=== PATIENT | male | born 1975 | race Hispanic/Latino ===

== ENCOUNTER 2018-09-12 22:43 | Observation (INO) | payer MEDICARE, OTHER ==
[2018-09-12] MEDS ORDERED: NACL 0.9% 1000 ML 1,000 ML IV ONE (22:51)
[2018-09-12 23:11] LABS: Basophils % (Auto) 0.7 % (0.0-1.8); Eosinophils # (Auto) 0.2 K/mm3 (0.0-0.4); Eosinophils % (Auto) 2.3 % (0.0-4.3); Hematocrit 37.1 % (35.5-45.6); Hemoglobin 12.4 gm/dl (11.8-15.2); Lymphocytes # (Auto) 1.8 K/mm3 (1.2-5.4); Lymphocytes % (Auto) 26.6 % (13.4-35.0); Mean Corpuscular HGB Conc 34 % (32-34); Mean Corpuscular Volume 100 fl (84-94); Monocytes # (Auto) 0.9 K/mm3 (0.0-0.8); Monocytes % (Auto) 13.5 % (0.0-7.3); Red Blood Count 3.72 M/mm3 (3.65-5.03); Red Cell Distribution Width 13.9 % (13.2-15.2)
[2018-09-12 23:23] LABS: Alanine Aminotransferase 28 units/L (7-56); Albumin 3.7 g/dL (3.9-5); BUN/Creatinine Ratio 13; Blood Urea Nitrogen 9 mg/dL (9-20); Calcium 8.6 mg/dL (8.4-10.2); Hemolysis Index 9
[2018-09-12 23:26] LABS: Benzodiazepines Screen,Urine PRESUMPTIVE NEGATIVE; Cannabinoid Screen,Urine PRESUMPTIVE NEGATIVE; Cocaine Screen,Urine PRESUMPTIVE NEGATIVE; Methadone Screen,Urine PRESUMPTIVE NEGATIVE; Opiate Screen,Urine PRESUMPTIVE NEGATIVE
[2018-09-12 23:32] LABS: Bilirubin,Urine NEG (Negative); Blood,Urine NEG (Negative); Color,Urine Yellow (Yellow); Mucus,Urine FEW /HPF; Protein,Urine <15 mg/dL mg/dL (Negative)
[2018-09-12 23:35] LABS: Platelet Count 199 K/mm3 (140-440)
[2018-09-12 23:38] LABS: INR 0.9 (0.87-1.13); Partial Thromboplastin Time 22.6 Sec. (24.2-36.6)
--- NOTE | 2018-09-12 23:41 | Emergency Department Report ---
HPI - General Chief Complaint: Altered Mental Status Time Seen by Provider: 09/12/18 22:51 - HPI HPI: 43-year-old male presents to the emergency department via EMS with a complaint of being unresponsive. Per EMS and then a [facility] police lieutenant precinct, the patient recently had gotten out of fpc. His sister went over to the house to check on him and at that point he was awake and alert. She went downstairs and spoke with the patient's significant other and when she went back upstairs to talk to the patient he was unresponsive. Apparently he had a large amount of clear sputum or drainage coming from the mouth and sounded like he was having trouble breathing. Allegedly the patient had some type of head injury earlier in the day. He also has a history of drug abuse and uses either methamphetamines or heroin. The patient is a poor historian secondary to his current acute medical condition. ED Past Medical Hx - Past Medical History Previous Medical History?: No - Surgical History Past Surgical History?: No - Social History Smoking Status: Unknown if ever smoked Substance Use Type: Heroin, Methamphetamines ED Review of Systems ROS: Stated complaint: POSS OD/POSS HEAD INJURY Other details as noted in HPI Comment: Unobtainable due to pts medical conditions Physical Exam - Physical Exam Vital Signs: Vital Signs 09/12/18 22:48 Pulse Rate 52 L Respiratory 16 Rate Blood Pressure 123/63 O2 Sat by Pulse 100 Oximetry Physical Exam: GENERAL: The patient is well-developed well-nourished. HEENT: Normocephalic. Atraumatic. Patient has moist mucous membranes. EYES: Extraocular motions are intact. Pupils are equal and reactive to light bilaterally. NECK: Supple. Trachea is midline. CHEST/LUNGS: Clear to auscultation. There is no respiratory distress noted. HEART/CARDIOVASCULAR: Regular. There is no tachycardia. There is no obvious murmur. ABDOMEN: Abdomen is soft, nontender. Patient has normal bowel sounds. There is no abdominal distention. SKIN: Skin is warm and dry. NEURO: The patient is altered and sedated but is seen immediately waking up spontaneously, moving all extremities, and appearing agitated, before he goes back to sleep. Withdraws from painful stimuli. He is otherwise not following any commands. MUSCULOSKELETAL: There is no tenderness or deformity. There is no evidence of acute injury. ED Course Vital Signs 09/12/18 22:48 Pulse Rate 52 L Respiratory 16 Rate Blood Pressure 123/63 O2 Sat by Pulse 100 Oximetry ED Medical Decision Making - Lab Data Result diagrams: 09/12/18 Unknown 09/12/18 Unknown - EKG Data -: EKG Interpreted by Me EKG shows normal: sinus rhythm, axis, intervals, QRS complexes (LVH), ST-T waves Rate: bradycardia (57 bpm) - EKG Data Interpretation: LVH - Radiology Data Radiology results: report reviewed, image reviewed interpreted by me: Chest x-ray does not show any pneumothorax, pleural effusion, pneumonia or obvious focal consolidation. PROCEDURE: CT HEAD/BRAIN WO CON TECHNIQUE: Routine axial imaging was obtained of the brain without IV contrast. HISTORY: AMS COMPARISONS: None FINDINGS: There is no evidence of acute stroke or hemorrhage. The ventricular system is appropriate in size and is symmetric. The visualized sinuses are clear. The mastoid air cells are well pneumatized. The calvarium appears intact. IMPRESSION: Within normal limits.. This document is electronically signed by Precious Early MD., September 12 2018 11:53:02 PM ET Transcribed By: RB Dictated By: PRECIOUS EARLY MD Electronically Authenticated By: PRECIOUS EARLY MD Signed Date/Time: 09/12/18 6212 PROCEDURE: CT CERVICAL SPINE WO CON TECHNIQUE: Computerized tomography of the cervical spine was performed from the skull base to T1 without contrast material. HISTORY: fall . Pain. COMPARISONS: None . FINDINGS: No fracture or subluxation is visualized. Prevertebral soft tissues appear normal. Small posterior spurs are present at C4-C5. There is no focal disc herniation. No evidence of spinal stenosis or cord compression. The neural foramen bilaterally appear adequate. Impression: Minimal degenerative disc disease as described. No fracture or subluxation is identified. This document is electronically signed by Kishor Cortes MD., September 13 2018 12:23:00 AM ET Transcribed By: DFAlma Dictated By: KISHOR CORTES MD Electronically Authenticated By: KISHOR CORTES MD Signed Date/Time: 09/13/18 0025 - Medical Decision Making This patient presents to the emergency department with a EMS call for an unresponsive patient. He received some Narcan in route that did not appear to provide any relief or improvement of his symptoms. However he did spontaneously wake up and start moving as they arrived to the emergency department. He appears to cycle between waking up, becoming slightly agitated, and then going back to sleep. He does not follow any commands and has not been heard talking much but has been sitting moving his extremities. He does not appear to have any signs of any focal or lateralizing deficits. A stat CT scan of the head was done that did not show any bleed, shift, mass, ischemia, or any other acute process. CT of the cervical spine did not show any fracture, subluxation or any acute process. Patient's labs have been mostly unremarkable except for very mild hypokalemia and a urine drug screen positive for amphetamines. He does have a history of amphetamine and heroin abuse. Opiates were negative and the patient does not appear to have had any response to the Narcan previously given. The amphetamines were positive but this is not a presentation that appears consistent with amphetamine abuse/intoxication. For this reason, and the strange history given from EMS and the police, the patient will be admitted to the hospital for further evaluation of his altered mental status and unresponsive episodes. Vital signs were stable throughout his ED course. There has been no hypoxia, tachypnea, or signs of any respiratory distress since being in the emergency department. - Differential Diagnosis substance abuse, CVA, TIA, encephalopathy, hypoglycemia Critical Care Time: No Critical care attestation.: If time is entered above; I have spent that time in minutes in the direct care of this critically ill patient, excluding procedure time. ED Disposition Clinical Impression: Unresponsive episode, Hypokalemia, History of methamphetamine abuse Altered mental status Qualifiers: Altered mental status type: unspecified Qualified Code(s): R41.82 - Altered mental status, unspecified Disposition: DC-09 OP ADMIT IP TO THIS HOSP Is pt being admited?: Yes Condition: Serious Referrals: PRIMARY CARE, [Primary Care Provider] - 3-5 Days Time of Disposition: 01:15
[2018-09-12 23:42] LABS: Amphetamine Screen,Urine PRESUMPTIVE POSITIVE
--- NOTE | 2018-09-12 23:55 | Cat Scan Report ---
PROCEDURE: CT HEAD/BRAIN WO CON TECHNIQUE: Routine axial imaging was obtained of the brain without IV contrast. HISTORY: AMS COMPARISONS: None FINDINGS: There is no evidence of acute stroke or hemorrhage. The ventricular system is appropriate in size and is symmetric. The visualized sinuses are clear. The mastoid air cells are well pneumatized. The calv arium appears intact. IMPRESSION: Within normal limits.. This document is electronically signed by Ethan Early MD., September 12 2018 11:53:02 PM ET
--- NOTE | 2018-09-12 23:58 | XRay Report ---
PROCEDURE: XR CHEST 1V AP TECHNIQUE: A portable view of the chest was imaged. HISTORY: Altered Mental Status COMPARISONS: None FINDINGS: The heart size and mediastinum appear normal. The lungs are clear. Pleural fluid is not seen. The ske letal structures do not show any acute changes. IMPRESSION: No acute cardiopulmonary process.. This document is electronically signed by Ethan Early MD., September 12 2018 11:55:52 PM ET
--- NOTE | 2018-09-13 00:25 | Cat Scan Report ---
PROCEDURE: CT CERVICAL SPINE WO CON TECHNIQUE: Computerized tomography of the cervical spine was performed from the skull base to T1 wit hout contrast material. HISTORY: fall . Pain. COMPARISONS: None . FINDINGS: No fracture or subluxation is visualized. Prevertebral soft tissues appear normal. Small posterior sp urs are present at C4-C5. There is no focal disc herniation. No evidence of spinal stenosis or cord c ompression. The neural foramen bilaterally appear adequate. Impression: Minimal degenerative disc disease as described. No fracture or subluxation is identified. This document is electronically signed by Kishor Cortes MD., September 13 2018 12:23:00 AM ET
[2018-09-13 01:25] VITALS: BP 115/67
[2018-09-13] MEDS ORDERED: TYLENOL PR PRN (01:59)
[2018-09-13] MEDS ORDERED: ZOFRAN IV PRN (02:00)
[2018-09-13] MEDS ORDERED: NACL 0.9% 1000 ML 1,000 ML IV SCH (02:00)
--- NOTE | 2018-09-13 08:19 | Progress Note ---
Assessment and Plan Assessment and plan: Patient is a 43 yo man with a history of substance abuse who presented to [facility] with AMS. Details are not verified with patient. * CT cervical spine Impression: Minimal degenerative disc disease as described. No fracture or subluxation is identified. * CT head/brain IMPRESSION: Within normal limits.. * pCXR IMPRESSION: No acute cardiopulmonary process.. Acute Toxic Encehalopathy: Supportive care Substance Abuse of Amphetamines in UDS: counseling Bradycardia: monitor vitals closely Hypokalemia: replete and monitor closely History Interval history: Patient was seen and examined. Follow-up on current diagnosis of AMS. Overnight uneventful. Patient denies any chest pain, shortness breath, nausea/vomiting or severe headaches. Imaging, nursing note, chart, labs and old chart reviewed. Discussed with patient. Hospitalist Physical - Physical exam Narrative exam: Gen: WDWN, NAD, Awake, Alert, Orientated HEENT: NCAT, EOMI, PERRL, OP Clear Neck: supple, no adenopathy, no thyromegaly, no JVD CVS/Heart: Regular bradycardia, normal S1S2, pulses present bilaterally Chest/Lungs: CTA B, Symmetrical chest expansion, good air entry bilaterally GI/Abdomen: soft, NTND, good bowel sounds, no guarding or rebound /Bladder: no suprapubic tenderness, no CVA or paraspinal tenderness Extermity/Skin: no c/c/e, no obvious rash MSK: FROM x 4 Neuro: CN 2-12 grossly intact, no new focal deficits Psych: calm - Constitutional Vitals: Temp Pulse Resp BP Pulse Ox 51 L 10 L 115/67 99 09/13/18 01:15 09/13/18 01:15 09/13/18 01:15 09/13/18 01:15 Results - Labs CBC & Chem 7: 09/12/18 Unknown 09/12/18 Unknown Labs: Laboratory Last Values WBC 6.7 K/mm3 (4.5-11.0) 09/12/18 Unknown RBC 3.72 M/mm3 (3.65-5.03) 09/12/18 Unknown Hgb 12.4 gm/dl (11.8-15.2) 09/12/18 Unknown Hct 37.1 % (35.5-45.6) 09/12/18 Unknown MCV 100 fl (84-94) H 09/12/18 Unknown MCH 33 pg (28-32) H 09/12/18 Unknown MCHC 34 % (32-34) 09/12/18 Unknown RDW 13.9 % (13.2-15.2) 09/12/18 Unknown Plt Count 199 K/mm3 (140-440) 09/12/18 Unknown Lymph % (Auto) 26.6 % (13.4-35.0) 09/12/18 Unknown Cowley % (Auto) 13.5 % (0.0-7.3) H 09/12/18 Unknown Eos % (Auto) 2.3 % (0.0-4.3) 09/12/18 Unknown Baso % (Auto) 0.7 % (0.0-1.8) 09/12/18 Unknown Lymph # 1.8 K/mm3 (1.2-5.4) 09/12/18 Unknown Cowley # 0.9 K/mm3 (0.0-0.8) H 09/12/18 Unknown Eos # 0.2 K/mm3 (0.0-0.4) 09/12/18 Unknown Baso # 0.0 K/mm3 (0.0-0.1) 09/12/18 Unknown Seg Neutrophils % 56.9 % (40.0-70.0) 09/12/18 Unknown Seg Neutrophils # 3.8 K/mm3 (1.8-7.7) 09/12/18 Unknown PT 12.7 Sec. (12.2-14.9) 09/12/18 23:19 INR 0.90 (0.87-1.13) 09/12/18 23:19 APTT 22.6 Sec. (24.2-36.6) L 09/12/18 23:19 Sodium 143 mmol/L (137-145) 09/12/18 Unknown Potassium 3.4 mmol/L (3.6-5.0) L 09/12/18 Unknown Chloride 105.0 mmol/L (98-107) 09/12/18 Unknown Carbon Dioxide 25 mmol/L (22-30) 09/12/18 Unknown Anion Gap 16 mmol/L 09/12/18 Unknown BUN 9 mg/dL (9-20) 09/12/18 Unknown Creatinine 0.7 mg/dL (0.8-1.5) L 09/12/18 Unknown Estimated GFR > 60 ml/min 09/12/18 Unknown BUN/Creatinine Ratio 13 % 09/12/18 Unknown Glucose 99 mg/dL (75-100) 09/12/18 Unknown POC Glucose 88 (70-105) 09/12/18 22:54 Lactic Acid 0.50 mmol/L (0.7-2.0) L 09/12/18 23:55 Calcium 8.6 mg/dL (8.4-10.2) 09/12/18 Unknown Total Bilirubin 0.30 mg/dL (0.1-1.2) 09/12/18 Unknown AST 23 units/L (5-40) 09/12/18 Unknown ALT 28 units/L (7-56) 09/12/18 Unknown Alkaline Phosphatase 43 units/L (35-129) 09/12/18 Unknown Ammonia 33.0 umol/L (25-60) 09/12/18 23:19 Total Creatine Kinase 324 units/L (55-170) H 09/12/18 Unknown Troponin T < 0.010 ng/mL (0.00-0.029) 09/12/18 Unknown Total Protein 6.2 g/dL (6.3-8.2) L 09/12/18 Unknown Albumin 3.7 g/dL (3.9-5) L 09/12/18 Unknown Albumin/Globulin Ratio 1.5 % 09/12/18 Unknown Urine Color Yellow (Yellow) 09/12/18 Unknown Urine Turbidity Clear (Clear) 09/12/18 Unknown Urine pH 6.0 (5.0-7.0) 09/12/18 Unknown Ur Specific Tyler 1.013 (1.003-1.030) 09/12/18 Unknown Urine Protein <15 mg/dl mg/dL (Negative) 09/12/18 Unknown Urine Glucose (UA) Neg mg/dL (Negative) 09/12/18 Unknown Urine Ketones Tr mg/dL (Negative) 09/12/18 Unknown Urine Blood Neg (Negative) 09/12/18 Unknown Urine Nitrite Neg (Negative) 09/12/18 Unknown Urine Bilirubin Neg (Negative) 09/12/18 Unknown Urine Urobilinogen 4.0 mg/dL (<2.0) 09/12/18 Unknown Ur Leukocyte Esterase Neg (Negative) 09/12/18 Unknown Urine WBC (Auto) 1.0 /HPF (0.0-6.0) 09/12/18 Unknown Urine RBC (Auto) 2.0 /HPF (0.0-6.0) 09/12/18 Unknown Urine Mucus Few /HPF 09/12/18 Unknown Salicylates < 0.3 mg/dL (2.8-20.0) L 09/12/18 23:19 Urine Opiates Screen Presumptive negative 09/12/18 Unknown Urine Methadone Screen Presumptive negative 09/12/18 Unknown Acetaminophen < 5.0 ug/mL (10.0-30.0) L 09/12/18 23:19 Ur Barbiturates Screen Presumptive negative 09/12/18 Unknown Ur Phencyclidine Scrn Presumptive negative 09/12/18 Unknown Ur Amphetamines Screen Presumptive positive 09/12/18 Unknown U Benzodiazepines Scrn Presumptive negative 09/12/18 Unknown Urine Cocaine Screen Presumptive negative 09/12/18 Unknown U Marijuana (THC) Screen Presumptive negative 09/12/18 Unknown Drugs of Abuse Note Disclamer 09/12/18 Unknown Plasma/Serum Alcohol < 0.01 % (0-0.07) 09/12/18 23:19
--- NOTE | 2018-09-13 09:01 | History and Physical Report ---
CHIEF COMPLAINT: Unresponsiveness. HISTORY OF PRESENT ILLNESS: The patient is a 43-year-old male who was found by the family to be unresponsive and the EMS was called and the patient was brought into the Emergency Room for evaluation. Family said that the patient was okay until shortly before EMS was called and the patient is known to be illicit drug user. There was no definite history of trauma. However, family said that the patient is suspected to have hit his head somewhere. There is no history of fever or chills. No history of chest pain or shortness of breath. PAST MEDICAL HISTORY: Pertinent for illicit drug use. PAST SURGICAL HISTORY: Unremarkable. FAMILY HISTORY: Noncontributory. SOCIAL HISTORY: The patient uses methamphetamine, does not smoke cigarette and it is not clear whether the patient drinks alcohol. MEDICATIONS: The patient is not on any medications. ALLERGIES: There are no known drug allergies. REVIEW OF SYSTEMS: CONSTITUTIONAL: There is no fever, no chills, no diaphoresis. HEENT: There is no headache or sore throat. CARDIOVASCULAR SYSTEM: There is no chest pain or orthopnea. RESPIRATORY SYSTEM: There is no shortness of breath or cough. GASTROINTESTINAL SYSTEM: There is no nausea, no vomiting, no abdominal pain, diarrhea or constipation. NEUROLOGICAL SYSTEM: Change in mental status with decrease responsiveness noted. MUSCULOSKELETAL SYSTEM: There is no joint pain or swelling. DERMATOLOGICAL SYSTEM: There is no skin rash or itching. GENITOURINARY SYSTEM: There is no dysuria, hematuria, or flank pain. Rest of system review is normal. PHYSICAL EXAMINATION: GENERAL: At the time of exam, the patient was found to be lethargic and responding only to noxious stimulus and not in acute distress. VITAL SIGNS: Shows normal temperature with pulse of 52, respirations 16, blood pressure 123/63, O2 sat of 100% on room air. HEENT: Show pupils to be pinpoint and responding sluggishly to the light and accommodating. NECK: Supple with no JVD or carotid bruit. CARDIOVASCULAR SYSTEM: Showed normal first and second heart sounds with no gallops or murmur. RESPIRATORY SYSTEM: Show good air entry on both sides of the lungs with no abnormal breath sounds. GASTROINTESTINAL SYSTEM: Show abdomen to be full, soft, nontender, with no organomegaly or rigidity. NEUROLOGICAL: Showed the patient to be lethargic and responding to noxious stimulus with no focal deficit elicited. MUSCULOSKELETAL SYSTEM: Show no joint swelling or tenderness. DERMATOLOGICAL SYSTEM: Show no skin rash or bruises. GENITOURINARY SYSTEM: Show no costovertebral angle tenderness. PERTINENT LABORATORY DATA AND IMAGING STUDIES: The patient had CT of the head done, which came back normal. Also, the patient had CT of the cervical neck, CT of the cervical spine done that shows minimal degenerative disk disease with no fractures or subluxation. The patient's chest x-ray was unremarkable. Lab results show unremarkable CBC. Coagulation studies came back unremarkable. The patient's chemistry shows slight decrease in potassium level of 3.4. Urinalysis was unremarkable. The patient's toxicology screen is positive for amphetamine. DIAGNOSES: 1. Altered mental status with decreased responsiveness. 2. Amphetamine abuse. 3. Bradycardia. PLAN OF CARE: 1. The patient will be admitted to telemetry. 2. The patient will have 2D echo done this morning. 3. The patient will have cardiac enzymes checked q. 6 hours x 2 more levels. 4. The patient will be on IV normal saline at 100 mL an hour. 5. The patient will be on IV Zofran 4 mg every 8 hours as needed for nausea and vomiting and will be on Tylenol suppository 650 mg every 8 hours for fever and headache. 6. The patient will be on oxygen by nasal cannula. 7. Neuro checks q2h. JOB# [id number] OCN/NTS MERYL
--- NOTE | 2018-09-13 10:38 | Event Note ---
Date: 09/13/18 I was unable to locate in room 492, it appears that patient left AMA prior to being seen and prior to going to room 492. [employer] EMR was down during this time so no documentation in cpu. Bed control looking for answers for me.
== END 2018-09-13 08:38 | disposition left against medical advice (07) ==
LOC: ED 22:43 → 4A 09-13 01:15
PROVIDERS: ADMIT Internal Medicine; ATTEND Internal Medicine
DX: R41.82 Altered mental status, unspecified (principal); R00.1 Bradycardia, unspecified; F15.10 Other stimulant abuse, uncomplicated; E87.6 Hypokalemia
CPT/HCPCS: 36415; 70450; 71045; 72125; 80053; 80307; 81001; 82140; 82550; 82962; 84484; 85025; 85610; 85730; 93010; 93306; 96360; 99284; G0378; G0480; 80320